=== PATIENT | female | born 1955 | race African-American/Black ===

== ENCOUNTER 2019-08-02 12:25 | Outpatient (CLI) | payer MEDICAID ==
[~2019-08-02] VITALS: Ht 165.1 cm; Wt 86.2 kg
[2019-08-02] MEDS ORDERED: IOHEXOL-350 100 ML VIAL IV ONE ×2 (13:04→13:44)
[2019-08-02] MEDS ORDERED: IV NS 0.9% 250 ML IV ONE (13:04)
[2019-08-02] MEDS ORDERED: CT SWABBABLE VALVE TRANS SET 1 EA INFUS.SET MC ONE (13:04)
[2019-08-02] MEDS ORDERED: NITROGLYCERIN 0.4 MG/TAB BOTTLE ONE (13:21)
[2019-08-02] MEDS ORDERED: NITROGLYCERIN 0.4 MG/TAB BOTTLE SL ONE (13:30)
[2019-08-02] MEDS ORDERED: METOPROLOL TARTRATE INJ 5 MG/5 ML AMPUL IVP PRN (13:30)
[2019-08-02 14:10] VITALS: BP 119/69
[2019-08-02 14:25] VITALS: BP 122/73
[2019-08-02 14:40] VITALS: BP 121/70
--- NOTE | 2019-08-02 14:50 | NUR ---
DISCHARGE NOTE PATIENT FROM [facility]. PER STAND GRINDER NO ADMISSION GOING BACK TO [facility]. PATIENT CAME TO THE UNIT FROM [facility] FOR OBSERVATION. PATIENT VITAL SIGNS WNL. PATIENT BREATHING IS EVEN AND UNLABORED. PATIENT IN NO ACUTE DISTRESS. NO SOB NOTED. PATIENT STATES NO PAIN AT THIS TIME. NO FACIAL GRIMACING NOTED.PATIENT NEEDS AND CONCERNS ADDRESSED. AMBULANCE CAME BACK FOR [facility]ING [employer] 1445 BACK TO [place]. Addendum: 08/02/19 at 1526 by GAYE PASCUAL RN PATIENT ARRIVED ON UNIT 1410. LEFT BY AMBULANCE BACK TO [facility] 1445.
== END 2019-08-02 23:59 | disposition home or self-care (01) ==
LOC: CT 12:25
PROVIDERS: ATTEND Internal Medicine
DX: I25.10 Atherosclerotic heart disease of native coronary artery without angina pectoris (principal)
CPT/HCPCS: 75574; J7050; Q9967 ×2